=== PATIENT | female | born 1980 | race African-American/Black ===

== ENCOUNTER 2016-12-04 20:23 | Emergency (ER) | payer SELFPAY ==
--- NOTE | 2016-12-04 21:31 | ER Document Report ---
HPI - HPI Patient complains to provider of: right ear lobe drainage Onset: Other Quality of pain: Achy Severity: Mild Pain Level: 2 Context: Patient presents to the emergency department with complaints of right earlobe drainage and swelling. Patient reports that she placed a used as needed earrings and her ear and since that time she had swelling and drainage. She denies fever vomiting diarrhea. She cleaned it with peroxide and placed neomycin on it but it still is draining. Associated Symptoms: None Exacerbated by: Denies Relieved by: Denies Similar symptoms previously: No Recently seen / treated by doctor: No - REPRODUCTIVE LMP: 11-20-16 - DERM Skin Color: Normal Past Medical History - General Information source: Patient Last Menstrual Period: 2 weeks ago - Social History Smoking Status: Unknown if Ever Smoked Cigarette use (# per day): No Frequency of alcohol use: None Drug Abuse: None Lives with: Family Family History: None Patient has suicidal ideation: No Patient has homicidal ideation: No - Medical History Medical History: Negative Renal/ Medical History: Denies: Hx Peritoneal Dialysis Past Surgical History: Reports: Hx Section Vertical Provider Document - CONSTITUTIONAL Agree With Documented VS: Yes Exam Limitations: No Limitations General Appearance: WD/WN, No Apparent Distress - INFECTION CONTROL TRAVEL OUTSIDE OF THE [place] IN LAST 30 DAYS: No - HEENT HEENT: Atraumatic, Normocephalic. negative: Conjuctival Injection Notes: Right earlobe with drainage noted from the piercing area. No warmth or swelling. Culture obtained - NECK Neck: Normal Inspection, Supple - RESPIRATORY Respiratory: Breath Sounds Normal O2 Sat by Pulse Oximetry: 98 - CARDIOVASCULAR Cardiovascular: Regular Rate - MUSCULOSKELETAL/EXTREMETIES Musculoskeletal/Extremeties: [place] - NEURO Level of Consciousness: Awake, Alert, Appropriate Motor/Sensory: No Motor Deficit - DERM Integumentary: Warm, Dry Course - Re-evaluation Re-evalutation: 12/04/16 21:28 Patient instructed on culture pending. Patient instructed on bacitracin importance of keeping the area clean and importance of cleaning used earrings. - Vital Signs Vital signs: Temp Pulse Resp BP Pulse Ox 97.9 F 73 16 148/84 H 98 12/04/16 20:48 12/04/16 20:48 12/04/16 20:48 12/04/16 20:48 12/04/16 20:48 Discharge - Discharge Clinical Impression: right ear lobe piercing drainage, Elevated blood pressure reading Condition: Stable Disposition: HOME, SELF-CARE Instructions: Antibiotic Ointment Protection ([facility]) Additional Instructions: *You have been treated for drainage from your right earlobe *Keep your earlobe clean, apply bacitracin twice a day *Monitor the site for signs of infection such as increasing pain,redness, swelling, warmth *Do not use earrings until completely healed *Follow up with a primary care provider within one week for a recheck *Return to ED for signs of increasing infection, worsening condition, changes, needs Monitor your blood pressure. Your blood pressure was elevated today. This may be because you were anxious, in pain or because you need medication. It is important to follow up with your primary care provider for full evaluation. Forms: Elevated Blood Pressure
[2016-12-04 22:18] VITALS: BP 135/73
== END 2016-12-04 22:16 | disposition home or self-care (01) ==
LOC: ER 20:23
DX: H93.8X1 Other specified disorders of right ear (principal); R03.0 Elevated blood-pressure reading, without diagnosis of hypertension
CPT/HCPCS: 87070; 87205; 99282